=== PATIENT | female | born 1985 | race Caucasian/White ===

== ENCOUNTER → 2020-03-03 | Outpatient (CLI) | payer OTHER ==
[~2020-03-03] MED LIST: DOCU240C31 PO; FERR1GRA2 PO; IBUP-1222 PO; OXYC-302 PO
== END | disposition home or self-care (01) ==
LOC: STAR 12:32
PROVIDERS: ATTEND Obstetrics & Gynecology
DX: Z01.812 Encounter for preprocedural laboratory examination (principal); Z20.828 Contact with and (suspected) exposure to other viral communicable diseases
CPT/HCPCS: 87635

== ENCOUNTER 2020-03-08 05:38 | Inpatient (IN) | payer MEDICAID, OTHER ==
[~2020-03-08] VITALS: Ht 160 cm; Wt 73.0 kg
[2020-03-08] MEDS ORDERED: LACTATED RINGERS 1,000 ML IVBOLUS ONE (06:00)
[2020-03-08] MEDS ORDERED: SODIUM CITRATE/CITRIC ACID 30 ML UDC PO ONE (06:00)
[2020-03-08] MEDS ORDERED: METOCLOPRAMIDE 5 MG/ML, 2ML IV ONE (06:00)
[2020-03-08 06:33] LABS: BASOPHILS % (AUTO) 1 % (0-1); EOSINOPHILS % (AUTO) 1 % (1-7); LYMPHOCYTES % (AUTO) 22 % (22-44); MEAN CORPUSCULAR HEMOGLOBIN 29.2 pg (27.0-34.8); MEAN CORPUSCULAR HGB CONC 33.7 g/dL (32.4-35.8); MEAN PLATELET VOLUME 10.5 fL (7.4-10.4); MONOCYTES % (AUTO) 5 % (2-9); NEUTROPHILS % (AUTO) 71 % (42-75); PLATELET COUNT 143 x10^3/uL (130-400); RED BLOOD COUNT 4.51 x10^6/uL (3.82-5.3)
[2020-03-08 06:34] LABS: MD NO
[2020-03-08] MEDS ORDERED: METOCLOPRAMIDE 5 MG/ML, 2ML ONE (06:42)
[2020-03-08] MEDS: LACTATED RINGERS 1,000 ML IV SCH ×6 (10:53→23:00)
[2020-03-08] MEDS ORDERED: morphine SULFATE/PF 0.5 MG/ML, 10ML ONE (12:07)
[2020-03-08] MEDS ORDERED: DEXAMETHASONE 4 MG/ML, 1ML ONE (12:07)
[2020-03-08] MEDS ORDERED: SODIUM CHLORIDE 0.9% PF 10ML ONE (12:07)
[2020-03-08] MEDS ORDERED: CEFAZOLIN 1,000 MG ONE (12:07)
[2020-03-08] MEDS ORDERED: PHENYLEPHRINE 10 MG/ML ONE (12:08)
[2020-03-08] MEDS ORDERED: WATER-INJECTION,STERILE 10 ML IV ONE (12:08)
[2020-03-08] MEDS ORDERED: OXYTOCIN 10 UNITS/ML, 1ML ONE (12:08)
[2020-03-08] MEDS ORDERED: ONDANSETRON 2MG/ML, 2ML ONE (12:08)
[2020-03-08] MEDS ORDERED: KETOROLAC 30 MG/1 ML ONE (12:08)
[2020-03-08] MEDS ORDERED: METHYLERGONOVINE 0.2 MG/ML IM PRN (13:00)
[2020-03-08] MEDS ORDERED: OXYcodone/APAP 5/325MG TABLET PO PRN (13:00)
[2020-03-08] MEDS ORDERED: CARBOPROST TROMETHAMINE 250 MCG/ML, 1ML IM PRN (13:00)
[2020-03-08] MEDS ORDERED: MEPERIDINE/PF 100 MG/ML IVPush PRN (13:00)
[2020-03-08] MEDS ORDERED: ONDANSETRON 2MG/ML, 2ML IV PRN (13:00)
[2020-03-08] MEDS ORDERED: MISOPROSTOL 200 MCG TABLET PR PRN (13:00)
[2020-03-08] MEDS ORDERED: MEPERIDINE/PF 50 MG/ML IM PRN (13:00)
[2020-03-08] MEDS ORDERED: OXYTOCIN 30U/ 0.9% NaCL 500ML 500 ML ONE (13:52)
[2020-03-08] MEDS: OXYTOCIN 30U/ 0.9% NaCL 500ML 500 ML IV SCH ×2 (14:11→23:00)
[2020-03-08] MEDS ORDERED: MISOPROSTOL 200 MCG TABLET ONE ×2 (14:38→14:44)
[2020-03-08] MEDS ORDERED: OXYcodone 5 MG/5 ML ORAL.SOL UDC ONE (14:38)
[2020-03-08] MEDS ORDERED: OXYcodone 5 MG/5 ML ORAL.SOL UDC PO PRN (15:00)
[2020-03-08 15:50] VITALS: BP 123/80
[2020-03-08 18:40] VITALS: BP 124/78
[2020-03-08] MEDS: KETOROLAC 30 MG/1 ML IV SCH ×2 (18:46→19:00)
[2020-03-08 20:50] VITALS: BP 138/85
[2020-03-08 21:55] LABS: BASOPHILS % (AUTO) 0 % (0-1); LYMPHOCYTES % (AUTO) 9 % (22-44); MEAN CORPUSCULAR HEMOGLOBIN 29.3 pg (27.0-34.8); MEAN CORPUSCULAR HGB CONC 33.8 g/dL (32.4-35.8); MEAN PLATELET VOLUME 11.3 fL (7.4-10.4); MONOCYTES % (AUTO) 2 % (2-9); PLATELET COUNT 140 x10^3/uL (130-400); RED BLOOD COUNT 3.87 x10^6/uL (3.82-5.3); RED CELL DISTRIBUTION WIDTH 14.5 % (9.6-15.2)
[2020-03-08 23:06] LABS: EOSINOPHILS % (AUTO) 1 % (1-7); MD SCAN
[2020-03-08 23:07] LABS: NEUTROPHILS % (AUTO) 88 % (42-75)
[2020-03-09 01:00] VITALS: BP 107/67
[2020-03-09] MEDS: KETOROLAC 30 MG/1 ML IV SCH ×4 (01:04→19:41)
[2020-03-09] MEDS: OXYcodone/APAP 5/325MG TABLET PO PRN ×5 (03:04→21:55)
[2020-03-09 05:00] VITALS: BP 106/72
[2020-03-09] MEDS: LACTATED RINGERS 1,000 ML IV SCH ×2 (05:00)
[2020-03-09 07:20] VITALS: BP 94/64
[2020-03-09] MEDS: SIMETHICONE 80 MG CHEW TAB PO PRN (08:33)
[2020-03-09] MEDS: DOCUSATE 100 MG CAPSULE PO PRN ×2 (08:33→19:50)
[2020-03-09] MEDS: PRENATAL VIT/IRON/FA 1 EACH TABLET PO SCH (08:33)
[2020-03-09 12:00] VITALS: BP 100/66
[2020-03-09 20:00] VITALS: BP 109/71
[2020-03-10] MEDS: KETOROLAC 30 MG/1 ML IV SCH ×2 (01:20→07:21)
[2020-03-10] MEDS: SIMETHICONE 80 MG CHEW TAB PO PRN ×3 (01:20→19:35)
[2020-03-10] MEDS: OXYcodone/APAP 5/325MG TABLET PO PRN ×6 (01:53→23:30)
[2020-03-10] MEDS: PRENATAL VIT/IRON/FA 1 EACH TABLET PO SCH (07:20)
[2020-03-10] MEDS: DOCUSATE 100 MG CAPSULE PO PRN ×2 (07:20→19:36)
[2020-03-10 10:12] VITALS: BP 111/73
[2020-03-10] MEDS: IBUPROFEN 600 MG TABLET PO PRN ×2 (13:23→19:36)
[2020-03-10 20:00] VITALS: BP 112/75
[2020-03-11] MEDS: IBUPROFEN 600 MG TABLET PO PRN ×3 (01:30→11:34)
[2020-03-11] MEDS: SIMETHICONE 80 MG CHEW TAB PO PRN (01:30)
[2020-03-11] MEDS: OXYcodone/APAP 5/325MG TABLET PO PRN ×3 (03:34→11:35)
[2020-03-11] MEDS: DOCUSATE 100 MG CAPSULE PO PRN (07:29)
[2020-03-11] MEDS: PRENATAL VIT/IRON/FA 1 EACH TABLET PO SCH (07:29)
[2020-03-11 07:30] VITALS: BP 115/74
[2020-03-11] MEDS ORDERED: OXYC-302 PO (09:14)
[2020-03-11] MEDS ORDERED: IBUP-1222 PO (09:14)
[2020-03-11] MEDS ORDERED: DOCU-131 PO (09:14)
== END 2020-03-11 12:35 | disposition home or self-care (01) | DRG 788 ==
LOC: LDIP 05:38 → 2NW 15:41
PROVIDERS: ADMIT Obstetrics & Gynecology; ATTEND Obstetrics & Gynecology
PROC: 10D00Z1 Extraction of Products of Conception, Low, Open Approach (ICD-10-PCS; principal; 2020-03-08)
DX: O34.211 Maternal care for low transverse scar from previous cesarean delivery (principal); O40.3XX0 Polyhydramnios, third trimester, not applicable or unspecified; M06.9 Rheumatoid arthritis, unspecified; O69.81X0 Labor and delivery complicated by cord around neck, without compression, not applicable or unspecified; Z37.0 Single live birth; Z3A.39 39 weeks gestation of pregnancy; Z79.82 Long term (current) use of aspirin; O75.89 Other specified complications of labor and delivery
CPT/HCPCS: 36415; 85025; 86592; 86850; 86900; G0378; J0690; J1100; J1885; J2274; J2405; J2370; J2590; J2765; J7120